=== PATIENT | male | born 1965 | race Caucasian/White ===

== ENCOUNTER 2017-04-11 08:14 | Emergency (ER) | payer OTHER ==
[2017-04-11 09:02] LABS: BASOPHIL 0.5 % (0-2); EOSINOPHIL 5.2 % (0-5); HCT 44.1 % (42.0-52.0); HGB 15.5 g/dl (13.2-18.0); LYMPHOCYTE 10.8 % (15-48); MCHC 35.1 g/dL (32.0-36.0); MCV 93.8 fL (78.0-100.0); MONOCYTE 8.6 % (0-12); MPV 9.7 fL (6.0-9.5); NEUTROPHIL 74.9 % (41-80); PLT 255 K/uL (150-400); WBC 13.2 K/uL (4.0-10.5)
[2017-04-11 09:19] LABS: LACTIC ACID 1.2 mmol/L (0.5-2.2)
[2017-04-11 09:21] LABS: CREATININE 1.2 mg/dL (0.7-1.2); POTASSIUM 4.4 mmol/L (3.5-5.1)
== END 2017-04-11 09:47 | disposition home or self-care (01) ==
LOC: FER 08:14
PROVIDERS: Internal Medicine
DX: J18.9 Pneumonia, unspecified organism (principal); J44.9 Chronic obstructive pulmonary disease, unspecified; I10 Essential (primary) hypertension
CPT/HCPCS: 36415; 71020; 80048; 83605; 85025; 87040; 94640; J2930

== ENCOUNTER 2022-06-12 09:25 | Day surgery (SDCO) | payer OTHER ==
[~2022-06-12] VITALS: Ht 182.9 cm; Wt 97.0 kg
[~2022-06-12 09:25] MED LIST: AMLODIPINE BESYL5 MG PO; ASPIRIN EC81 MG PO; BENAZEPRIL HCL40 MG PO; MELOXICAM15 MG PO; PERCOCET 5-3251 EACH PO; PRILOSEC20 MG PO; VOLTAREN **OUT75 MG PO
[2022-06-12 10:05] LABS: BASOPHIL 0.7 % (0-2); EOSINOPHIL 0.9 % (0-5); LYMPHOCYTE 12.6 % (15-48); MCH 32.3 pg (25.0-31.0); MCHC 33.3 g/dL (32.0-36.0); MCV 96.8 fL (78.0-100.0); MONOCYTE 10.4 % (0-12); MPV 9.2 fL (6.0-9.5); NEUTROPHIL 74.5 % (41-80); NRBC 0; PLT 217 K/uL (150-400); RBC 4.96 M/uL (4.70-6.00); RDW 13.6 % (11.5-14.0); WBC 10.8 K/uL (4.0-10.5)
[2022-06-12 10:20] LABS: INR 1.02 (0.9-1.2); PROTHROMBIN TIME 13.1 SECONDS (11.9-13.9)
[2022-06-12 10:32] LABS: BUN/CREAT RATIO (CALC) 12.4 RATIO; CREATININE 0.97 mg/dL (0.67-1.17); MAGNESIUM 1.9 mg/dL (1.8-2.4)
--- NOTE | 2022-06-12 14:10 | NUR ---
NITRO PASTE PATCH REMOVED AT [id number]
[2022-06-12] MEDS ORDERED: TERBINAFINE HC250 MG PO (14:26)
[2022-06-13 06:55] LABS: HCT 45.3 % (42.0-52.0); HGB 15.4 g/dl (13.2-18.0); MCV 97.2 fL (78.0-100.0); MPV 9.8 fL (6.0-9.5); RBC 4.66 M/uL (4.70-6.00); RDW 13.7 % (11.5-14.0); WBC 9.4 K/uL (4.0-10.5)
[2022-06-13 07:18] LABS: BUN/CREAT RATIO (CALC) 11.4 RATIO; CREATININE 0.88 mg/dL (0.67-1.17); POTASSIUM 3.9 mmol/L (3.5-5.1)
[2022-06-13] MEDS ORDERED: ASPIRIN EC81 MG PO (09:31)
--- NOTE | 2022-06-13 10:05 | NUR ---
06/13/22 Mr. Macias lives with his spouse. He is employed and reports to be able to meet his fiancial obligations.
== END 2022-06-13 11:07 | disposition home or self-care (01) ==
LOC: FER 09:25 → FTCU 12:02
PROVIDERS: Emergency Medicine; ADMIT Family Medicine
DX: R07.89 Other chest pain (principal); I12.9 Hypertensive chronic kidney disease with stage 1 through stage 4 chronic kidney disease, or unspecified chronic kidney disease; N18.2 Chronic kidney disease, stage 2 (mild); J44.9 Chronic obstructive pulmonary disease, unspecified; F10.10 Alcohol abuse, uncomplicated; Z20.822 Contact with and (suspected) exposure to COVID-19; Z87.891 Personal history of nicotine dependence; Z79.82 Long term (current) use of aspirin; Z79.899 Other long term (current) drug therapy; Z88.5 Allergy status to narcotic agent; Z82.49 Family history of ischemic heart disease and other diseases of the circulatory system
CPT/HCPCS: 36415; 71045; 80048; 80061; 83036; 83735; 83880; 84484; 85025; 85610; 85730; 93005; 94010; G0378; J1650; U0002